=== PATIENT | male | born 1965 | race Caucasian/White ===

== ENCOUNTER 2017-04-06 11:30 | Inpatient (IN) ==
--- NOTE | 2017-04-06 12:45 | Emergency Department Note ---
Disposition Clinical Impression: Cirrhosis, Splenomegaly, Thrombocytopenia, Alcohol abuse, Cirrhosis of liver with ascites, Elevated INR, Anemia Disposition: Admitted As Inpatient Referrals: Barbara Gutierrez CNP [Primary Care Provider] - Forms: ED Satisfaction Letter, Work/School Release General Adult HPI - General Chief complaint: ED Abdominal Pain Stated complaint: Fluid retention/abdominal cirrhosis/ascites Time Seen by Provider: 04/06/17 12:25 Source: patient Limitations: no limitations - History of Present Illness HPI Narrative: 52-year-old male reports to the emergency department with turns regarding abdominal swelling. There is no history of trauma chest pain or shortness of breath or leg swelling or pain or coughing up blood. The patient was seen at [facility] recently and had a CT scan which demonstrated splenomegaly cirrhosis and ascites. The patient had laboratory testing suggestive of cirrhosis as well , his INR was elevated had low platelets. The patient denies any bleeding. No bloody stool. There is no history of headache neck stiffness convulsion confusion or rash. No syncope. No trouble walking talking hearing seeing or speaking. The patient is known to drink alcohol. He has not had cirrhosis or liver problems in the past. There is no history of confusion or any other complaint or concern. The patient was referred to gastrology Dr. Sharp, but is not been able to get in yet. They called the office this morning and spoke with staff evidently they recommended the patient come to the ED. Pain Scale: 9 - Related Data Home Medications Medication Instructions Recorded Confirmed Lisinopril [Zestril] 40 mg PO DAILY 08/15/15 04/04/17 HydrOXYzine 25 mg PO HS PRN 08/04/16 04/04/17 Levothyroxine [Synthroid] 25 mcg PO 0630 08/04/16 04/04/17 Metoprolol [Lopressor] 50 mg PO BID 08/04/16 04/04/17 Omeprazole 20 mg PO DAILY 08/04/16 04/04/17 amLODIPine [Norvasc] 10 mg PO DAILY 08/04/16 04/04/17 Previous Rx's Medication Instructions Recorded Ondansetron HCl [Zofran] 4 mg PO Q6HR PRN #10 tablet 04/04/17 Allergies Allergy/AdvReac Type Severity Reaction Status Date / Time No Known Allergies Allergy Verified 04/06/17 12:02 All systems ED: reviewed and negative except as stated. Past Medical History - Past Medical History Medical history: Reports: cirrhosis, GERD, hypertension, thyroid disease, other Psychiatric history: Reports: no psych history - Social History Smoking Status: Current every day smoker Smokeless Tobacco Status: No Alcohol use: Reports: occasionally, recent Drug use: Reports: none Physical Exam - General Limitations: no limitations General appearance: alert, in no apparent distress - Head Head exam: atraumatic, normocephalic, normal inspection - Eye Eye exam: Present: normal appearance, PERRL, EOMI, scleral icterus - ENT ENT exam: normal exam, normal oropharynx, mucous membranes moist, TM's normal bilaterally, normal external ear exam - Neck Neck exam: Present: normal inspection, full ROM, trachea midline. Absent: tenderness, meningismus - Chest Chest inspection: Present: symmetric chest wall rise. Absent: tenderness - Respiratory Respiratory exam: Present: normal lung sounds bilaterally. Absent: respiratory distress, wheezes, stridor, accessory muscle use, prolonged expiratory phase - Cardiovascular Cardiovascular exam: Present: regular rate, normal rhythm, normal heart sounds - Abdominal Exam Abdominal exam: Present: soft, Non-Tender, distention, normal bowel sounds, ascites. Absent: tenderness, guarding, rebound, rigidity, pulsatile mass - Extremities Exam Extremities exam: Present: normal inspection, full ROM, normal capillary refill. Absent: tenderness, pedal edema, joint swelling, calf tenderness - Expanded Lower Extremity Exam Neurovascular/Tendon exam: Present: normal capillary refill. Absent: motor deficit, sensory deficit, tendon deficit, extremity cold to touch, pallor - Back Exam Back exam: Present: normal inspection, full ROM. Absent: tenderness, CVA tenderness (R), CVA tenderness (L), vertebral tenderness - Neurological Exam Neurological exam: Present: alert, oriented X3, CN II-XII intact. Absent: motor sensory deficit - Psychiatric Psychiatric exam: Present: normal affect, normal mood - Skin Skin exam: Present: warm, dry, intact, normal color. Absent: rash, cyanosis, diaphoresis, erythema, pallor, mottled Course Vital Signs Temperature 98.6 F 04/06/17 12:02 Pulse Rate 73 04/06/17 12:02 Respiratory Rate 20 04/06/17 12:02 Blood Pressure 147/94 04/06/17 12:02 O2 Sat by Pulse Oximetry 97 04/06/17 12:02 Temperature 98.6 F 04/06/17 12:02 Pulse Rate 73 04/06/17 12:02 Respiratory Rate 20 04/06/17 12:02 Blood Pressure 147/94 04/06/17 12:02 O2 Sat by Pulse Oximetry 97 04/06/17 12:02 Oxygen Delivery Oxygen Delivery Room Air Medical Decision Making - MDM Narrative Medical decision making narrative: The patient's CT scan from [facility] shows cirrhosis splenomegaly and ascites. Laboratory testing today consistent with same. The patient does have a significantly elevated INR and thrombocytopenia as well as anemia. Based on his marked ascites, coagulopathy, and symptomatic ascites, I thought it would be appropriate to put the patient the hospital for a first-time evaluation regarding cirrhosis which is likely alcohol-related. I think a paracentesis would be beneficial for analysis and symptomatic relief, as well as a GI consult. I spoke with the hospitalist on-call who has accepted the patient to their care. I also consulted with Dr. Sharp, [employer] who will act as entry level sales consultant. The patient is agreeable and stable at this time. - Lab Data Lab results reviewed: Yes I reviewed the patient's lab results. Result diagrams: 04/06/17 12:52 04/06/17 12:52 Lab Results 04/06/17 04/06/17 04/06/17 Range/Units 12:52 12:52 12:52 WBC 4.3 (4.3-11.1) K/mcL RBC 3.41 L (4.19-5.50) M/mcL Hgb 12.1 L (12.9-16.9) g/dL Hct 32.8 L (37.5-50.1) % MCV 96.2 (83.0-100.0) fL MCH 35.5 H (28.0-33.3) pg MCHC 36.9 H (31.6-35.5) g/dL RDW 16.1 H (11.5-14.5) % Plt Count 58 L (140-400) K/mcL MPV 9.7 (9.4-12.4) fL Immature Gran % 0.0 (0-4) % Seg Neutrophils % 58.6 % Lymphocytes % 27.6 % Monocytes % 12.4 % Eosinophils % 0.7 % Basophils % 0.7 % Neutrophils # 2.5 (1.6-8.9) K/mcL Lymphocytes # 1.2 (0.6-4.6) K/mcL Monocytes # 0.5 (0.0-1.3) K/mcL Eosinophils # 0.0 (0.0-0.6) K/mcL Basophils # 0.0 (0.0-0.2) K/mcL Immature Plt Fraction 5.1 (1.1-6.1) % PT 19.4 H (9.4-12.1) Seconds INR 1.8 APTT 42.7 H (26.0-36.0) Seconds Sodium 127 L (136-145) mEq/L Potassium 4.1 (3.5-4.5) mEq/L Chloride 94 L (98-109) mEq/L Carbon Dioxide 23 (19-29) mEq/L BUN 3 L (8-26) mg/dL Creatinine 0.70 L (0.72-1.25) mg/dL Est GFR ( Amer) > 60 (> 60) Est GFR (Non-Af Amer) > 60 (> 60) BUN/Creatinine Ratio 4 L (6-26) Glucose 113 H (70-99) mg/dL Calculated Osmolality 261 L (280-300) Lactic Acid (0.5-2.2) mmol/L Calcium 8.7 (8.6-10.8) mg/dL Total Bilirubin 4.9 H (0.2-1.2) mg/dL Direct Bilirubin 3.1 H (0.0-0.5) mg/dL Indirect Bilirubin 1.8 H (0.0-1.2) mg/dL AST 160 H (5-34) Units/L ALT 43 (0-55) Units/L Alkaline Phosphatase 202 H (38-126) Units/L Ammonia (18-72) mcmol/L Serum Total Protein 7.7 (6.0-8.3) g/dL Albumin 2.8 L (3.5-5.0) g/dL Globulin 4.9 H (2.4-3.5) g/dL Albumin/Globulin Ratio 0.6 L (1.1-2.2) Lipase 17 (8-78) Units/L Acetaminophen < 1.0 L (10-30) mcg/mL Ethyl Alcohol 82 H (0-10) mg/dL 04/06/17 04/06/17 Range/Units 12:52 12:52 WBC (4.3-11.1) K/mcL RBC (4.19-5.50) M/mcL Hgb (12.9-16.9) g/dL Hct (37.5-50.1) % MCV (83.0-100.0) fL MCH (28.0-33.3) pg MCHC (31.6-35.5) g/dL RDW (11.5-14.5) % Plt Count (140-400) K/mcL MPV (9.4-12.4) fL Immature Gran % (0-4) % Seg Neutrophils % % Lymphocytes % % Monocytes % % Eosinophils % % Basophils % % Neutrophils # (1.6-8.9) K/mcL Lymphocytes # (0.6-4.6) K/mcL Monocytes # (0.0-1.3) K/mcL Eosinophils # (0.0-0.6) K/mcL Basophils # (0.0-0.2) K/mcL Immature Plt Fraction (1.1-6.1) % PT (9.4-12.1) Seconds INR APTT (26.0-36.0) Seconds Sodium (136-145) mEq/L Potassium (3.5-4.5) mEq/L Chloride (98-109) mEq/L Carbon Dioxide (19-29) mEq/L BUN (8-26) mg/dL Creatinine (0.72-1.25) mg/dL Est GFR ( Amer) (> 60) Est GFR (Non-Af Amer) (> 60) BUN/Creatinine Ratio (6-26) Glucose (70-99) mg/dL Calculated Osmolality (280-300) Lactic Acid 1.8 (0.5-2.2) mmol/L Calcium (8.6-10.8) mg/dL Total Bilirubin (0.2-1.2) mg/dL Direct Bilirubin (0.0-0.5) mg/dL Indirect Bilirubin (0.0-1.2) mg/dL AST (5-34) Units/L ALT (0-55) Units/L Alkaline Phosphatase (38-126) Units/L Ammonia 37 (18-72) mcmol/L Serum Total Protein (6.0-8.3) g/dL Albumin (3.5-5.0) g/dL Globulin (2.4-3.5) g/dL Albumin/Globulin Ratio (1.1-2.2) Lipase (8-78) Units/L Acetaminophen (10-30) mcg/mL Ethyl Alcohol (0-10) mg/dL - Radiology Data Radiology results reviewed: Yes I reviewed the patient's radiology results.
[2017-04-06 13:02] LABS: Mean Corpuscular Volume 96.2 fL (83.0-100.0); Mean Platelet Volume 9.7 fL (9.4-12.4); Monocytes # 0.5 K/mcL (0.0-1.3); Monocytes % 12.4 %; Red Cell Distribution Width 16.1 % (11.5-14.5)
[2017-04-06 13:04] LABS: Basophils % 0.7 %; Eosinophils % 0.7 %; Hematocrit 32.8 % (37.5-50.1); Hemoglobin 12.1 g/dL (12.9-16.9); Immature Platelets 5.1 % (1.1-6.1); Lymphocytes # 1.2 K/mcL (0.6-4.6); Lymphocytes % 27.6 %; Mean Corpuscular HGB Conc 36.9 g/dL (31.6-35.5); Mean Corpuscular Hemoglobin 35.5 pg (28.0-33.3); Neutrophils # 2.5 K/mcL (1.6-8.9); Red Blood Count 3.41 M/mcL (4.19-5.50); Segmented Neutrophils % 58.6 %
[2017-04-06 13:05] LABS: Platelet Count 58 K/mcL (140-400)
[2017-04-06 13:10] LABS: INR 1.8; Prothrombin Time 19.4 Seconds (9.4-12.1)
[2017-04-06 13:12] LABS: Activated Partial Thrombo Time 42.7 Seconds (26.0-36.0)
[2017-04-06 13:18] LABS: Alanine Aminotransferase 43 Units/L (0-55); Albumin 2.8 g/dL (3.5-5.0); Albumin/Globulin Ratio 0.6 (1.1-2.2); Alkaline Phosphatase 202 Units/L (38-126); Aspartate Amino Transferase 160 Units/L (5-34); BUN/Creatinine Ratio 4 (6-26); Bilirubin,Direct 3.1 mg/dL (0.0-0.5); Bilirubin,Indirect 1.8 mg/dL (0.0-1.2); Bilirubin,Total 4.9 mg/dL (0.2-1.2); Calcium 8.7 mg/dL (8.6-10.8); Carbon Dioxide 23 mEq/L (19-29); Chloride 94 mEq/L (98-109); Ethanol 82 mg/dL (0-10); Globulin 4.9 g/dL (2.4-3.5); Glucose 113 mg/dL (70-99); Lipase 17 Units/L (8-78); Osmolality,Calculated 261 (280-300); Potassium 4.1 mEq/L (3.5-4.5); Sodium 127 mEq/L (136-145); Total Protein 7.7 g/dL (6.0-8.3); eGFR For African Americans > 60 (> 60); eGFR For Non-African Americans > 60 (> 60)
[2017-04-06 13:19] LABS: Acetaminophen < 1.0 mcg/mL (10-30); Blood Urea Nitrogen 3 mg/dL (8-26)
[2017-04-06 14:13] LABS: C-Reactive Protein 3 mg/L (Less than 5)
[2017-04-06 15:22] LABS: Bilirubin,Urine Negative (Negative); Blood,Urine Negative (Negative); Color,Urine Yellow (Yellow); Glucose,Urine (UA) Normal (Normal); Ketones,Urine Negative (Negative); Leukocyte Esterase,Urine Negative (Negative); Nitrite,Urine Negative (Negative); PH,Urine 6.5 pH Units (5.0-8.0); Protein,Urine Negative (Neg-Trace); Specific Gravity,Urine 1.006 (1.010-1.025); Urobilinogen,Urine Normal (Normal)
[2017-04-06 15:25] LABS: Clarity,Urine Clear (Clear)
[2017-04-06] MEDS ORDERED: Naloxone 0.4 MG/ML INJ IVP PRN (17:07)
[2017-04-06] MEDS ORDERED: *HR* LORazepam 2 MG/ML VIAL IVP PRN ×2 (17:16)
--- NOTE | 2017-04-06 17:28 | Internal Med History&Physical ---
<Lilliana Vargas - Last Filed: 04/06/17 17:55> Date of Encounter: 04/06/17 Time of Encounter: 17:28 Assessment and Plan (1) Cirrhosis of liver with ascites Current visit: Yes Status: Acute 1 patient has had increase in abdominal girth over the past [address] [facility] with ascites and splenomegaly. Patient is a drinker and drinks approximately 12 pack daily since he was [address] Sharp has been consulted per ER 2 we will consult IR for paracentesis in the a.m.-order has been placed day team to follow-up 3 we will make patient nothing by mouth 4 monitor intake and output daily weight Qualifiers: Hepatic cirrhosis type: alcoholic cirrhosis Qualified Code(s): K70.31 - Alcoholic cirrhosis of liver with ascites (2) Alcohol abuse Current visit: Yes Status: Chronic [address] on CIWA 2 monitor for withdrawal-neuro checks 3 give banana bag tonight 4 continuous critic monitoring 5 seizure precautions (3) Tobacco use Current visit: Yes Status: Acute Encouraged patient saw smoking nicotine patch (4) Elevated INR Current visit: Yes Status: Acute 1. Related to cirrhosis Will recheck in the a.m. monitor for any bleeding (5) Thrombocytopenia Current visit: Yes Status: Acute Lele platelets are 58 related to cirrhosis of the liver we will continue to monitor 2 bleeding precautions (6) Hypertension Current visit: No Status: Chronic Continue with lisinopril and amlodipine and metoprolol 2 low sodium diet Qualifiers: Hypertension type: essential hypertension Qualified Code(s): I10 - Essential (primary) hypertension (7) Hypothyroid Current visit: No Status: Chronic Continue with Synthroid Qualifiers: Hypothyroidism type: unspecified Qualified Code(s): E03.9 - Hypothyroidism , unspecified (8) DVT prophylaxis Current visit: Yes Status: Acute SCDs platelets are 58 Internal Medicine - H&P: HPI Chief complaint: abd swelling Admitted From: Emergency Dept Plans for Post Hospital Care: Home History of present illness: Mr. Majano is a 52 year old male past HISTORY of hypertension hypothyroid GERD cirrhosis ETO H use tobacco use. According to the patient he has been experiencing abdominal swelling over the past 2 weeks he was seen at [facility] , CT was obtained which was indicative of cirrhosis splenomegaly and ascites. He does have a past history of alcohol use he drinks a 12 pack daily which she has done since he was 14 years old. He states he has not had any cirrhosis or liver problems in the past . He was to follow-up as outpatient with which he has an appointment next week. He has continued to experience swelling has become more uncomfortable at times having difficulty sleeping at night experiencing early satiety and some shortness of breath as well as lower extremity edema. He denies any active bleeding hematochezia hematemesis melena. He called the office this morning and spoke with the staff advised the patient to go to the ER for evaluation. According to ER records and laboratory work was obtained which did reveal INR of 1.8 platelets 58 leukocytosis lactate is 1.8 AST was 160 LT is 43 alkaline phosphatase was 202 ammonia was 37 lipase was 17. Vital signs were stable ER physician did speak with GI we will see patient upon consult. Patient has been admitted for further workup and evaluation. Presently the patient denies any pain or discomfort at this time. He admits that his last drink was this morning prior to arriving to the hospital. His abdomen is distended and firm there is no guarding or tenderness to palpation. His sclerae are icterus no bruising noted. His lung sounds are clear heart sounds are regular S1 and S2 with no rubs gallops murmurs noted. Does have slight pedal edema to lower extremity is bilaterally. He is hemodynamically stable at this time. Diabetes his with who agrees with plan. Past Med Surg Social Fam HX - Past Medical History Medical history: cirrhosis, GERD, hypertension, thyroid disease, other Psychiatric history: no psych history - Social History Smoking Status: Current every day smoker Smokeless Tobacco Status: No Alcohol use: occasionally, recent Drug use: none - Family History Father Living Status: Cause of : Semi-truck accident Mother Living Status: Cause of : Ovarian cancer Internal Medicine - H&P: Meds Lisinopril [Zestril] 40 mg PO DAILY 08/15/15 [History] HydrOXYzine 25 mg PO HS PRN 08/04/16 [History] Levothyroxine [Synthroid] 25 mcg PO 0630 08/04/16 [History] Metoprolol [Lopressor] 50 mg PO BID 08/04/16 [History] Omeprazole 20 mg PO DAILY 08/04/16 [History] amLODIPine [Norvasc] 10 mg PO DAILY 08/04/16 [History] Ondansetron HCl [Zofran] 4 mg PO Q6HR PRN #10 tablet 04/04/17 [Rx] Hydrochlorothiazide [Microzide] 12.5 mg PO QAM 04/06/17 [History] 3 Allergy/AdvReac Type Severity Reaction Status Date / Time No Known Allergies Allergy Verified 04/06/17 12:02 All Systems PM: A 10-system review of systems was performed and is negative for pertinent findings except as documented above in the HPI. - Constitutional Constitutional: weight gain, no chills, no fever(s), no night sweats - EENT Nose, mouth and throat: no dysphagia, no nasal discharge, no neck pain, no sore throat - Cardiovascular Cardiovascular ROS IM: no chest pain, no diaphoresis, no dyspnea, no lightheadedness, no palpitations, no syncope - Respiratory Respiratory: no cough, no dyspnea, no wheezing, no excessive phlegm production - Gastrointestinal Gastrointestinal: as per HPI, bloating, early satiety - Musculoskeletal Musculoskeletal ROS IM: no numbness, no tingling - Integumentary Integumentary IM: no rash, no unusual bruising - Neurological Neurological ROS: no confusion, no convulsions, no focal weakness, no numbness, no tingling, no tremor(s) - Hematologic/Lymphatic Hematologic/Lymphatic: no easy bruising - Constitutional Vitals: Temp Pulse Resp BP Pulse Ox 97.8 F 69 18 161/98 99 04/06/17 14:55 04/06/17 14:55 04/06/17 14:55 04/06/17 14:55 04/06/17 15:13 General appearance: Present: A&O X 3, answers questions appropriately - Head Head exam: Present: atraumatic Additional comments: Face is asymmetrical which patient states has been present since - Neck Neck exam general surgery: Present: supple, trachea midline. Absent: lymphadenopathy - Respiratory Respiratory exam: Present: CTAB. Absent: accessory muscle use, rales, rhonchi, wheezes - Cardiovascular Cardiovascular exam: Present: RRR, +S1, +S2. Absent: diastolic murmur, gallop, rubs, systolic murmur - GI/Abdominal GI/Abdominal exam: Present: distended, firm, normal bowel sounds, soft, no peritoneal signs. Absent: tenderness - Extremities Exam Extremities exam: Present: warm, radial pulses palpable and symmetrical. Absent : calf tenderness, cyanotic, pedal edema - Neurological Exam Neurological exam: Present: CN II-XII intact, oriented X3, no focal deficits. Absent: pronater drift, facial droop, speech deficit - Skin Skin exam: Present: dry, intact Internal Med - H&P Results - Labs CBC & Chem 7: 04/06/17 12:52 04/06/17 12:52 Labs: Urine 04/06/17 Range/Units 15:00 Urine Color Yellow (Yellow) Urine Clarity Clear (Clear) Urine pH 6.5 (5.0-8.0) pH Units Ur Specific [place] 1.006 L (1.010-1.025) Urine Protein Negative (Neg-Trace) mg/dL Urine Glucose (UA) Normal (Normal) mg/dL <Reuben Avila - Last Filed: 04/06/17 19:57> Date of Encounter: 04/06/17 Internal Medicine - H&P: HPI History of present illness: Mr. Majano is a 52 year old male All Systems PM: A 10-system review of systems was performed and is negative for pertinent findings except as documented above in the HPI. - Constitutional Vitals: Temp Pulse Resp BP Pulse Ox 97.4 F L 76 19 145/93 98 04/06/17 18:38 04/06/17 18:38 04/06/17 18:38 04/06/17 18:38 04/06/17 18:38 Internal Med - H&P Results - Labs CBC & Chem 7: 04/06/17 12:52 04/06/17 12:52 Labs: Urine 04/06/17 Range/Units 15:00 Urine Color Yellow (Yellow) Urine Clarity Clear (Clear) Urine pH 6.5 (5.0-8.0) pH Units Ur Specific [place] 1.006 L (1.010-1.025) Urine Protein Negative (Neg-Trace) mg/dL Urine Glucose (UA) Normal (Normal) mg/dL - Attending Attestation I independently obtained history and examined this patient and my medical decision-making was reviewed with the nurse practitioner. I agree with the documented findings, disposition and treatment plan as described. My findings are summarized below: He is awake alert oriented 3. Heart is regular. Abdomen is distended with dullness to percussion flanks and positive wave sign. Plan: Paracentesis by radiology tomorrow. GI consult. Hepatitis panel to rule out viral hepatitis possible cause for his cirrhosis. I advised complete alcohol cessation.
[2017-04-06] MEDS: Nicotine 21 MG PATCH.TD24 TD SCH (17:40)
[2017-04-06] MEDS: *HR* LORazepam 2 MG/ML VIAL IVP PRN ×2 (17:41→22:17)
[2017-04-06] MEDS: Thiamine (B-1) 100 MG, Folic Acid 1 MG, MVI, adult with vitamin K 10 ML in 0.9 % Sodi... IVPB SCH (18:45)
[2017-04-07] MEDS: Thiamine (B-1) 100 MG, Folic Acid 1 MG, MVI, adult with vitamin K 10 ML in 0.9 % Sodi... IVPB SCH (00:34)
[2017-04-07 06:02] LABS: Basophils % 0.9 %; Hemoglobin 10.7 g/dL (12.9-16.9)
[2017-04-07 06:04] LABS: Eosinophils # 0.1 K/mcL (0.0-0.6); Eosinophils % 1.8 %; Immature Platelets 4.2 % (1.1-6.1); Lymphocytes # 1.4 K/mcL (0.6-4.6); Lymphocytes % 40.2 %; Mean Corpuscular HGB Conc 36.9 g/dL (31.6-35.5); Mean Corpuscular Hemoglobin 35.4 pg (28.0-33.3); Mean Platelet Volume 9.9 fL (9.4-12.4); Monocytes # 0.6 K/mcL (0.0-1.3); Monocytes % 16.3 %; Neutrophils # 1.4 K/mcL (1.6-8.9); Red Blood Count 3.02 M/mcL (4.19-5.50); Red Cell Distribution Width 16.2 % (11.5-14.5); Segmented Neutrophils % 40.8 %
[2017-04-07 06:07] LABS: INR 1.8; Prothrombin Time 19.3 Seconds (9.4-12.1)
[2017-04-07 06:08] LABS: Platelet Count 54 K/mcL (140-400)
[2017-04-07 06:10] LABS: Activated Partial Thrombo Time 43.9 Seconds (26.0-36.0)
[2017-04-07 06:16] LABS: BUN/Creatinine Ratio 6 (6-26); Calcium 8.1 mg/dL (8.6-10.8); Carbon Dioxide 25 mEq/L (19-29); Chloride 100 mEq/L (98-109); Glucose 104 mg/dL (70-99); Magnesium 1.1 mg/dL (1.6-2.6); Osmolality,Calculated 265 (280-300); Potassium 3.9 mEq/L (3.5-4.5); eGFR For African Americans > 60 (> 60); eGFR For Non-African Americans > 60 (> 60)
[2017-04-07 06:17] LABS: Blood Urea Nitrogen 4 mg/dL (8-26); Sodium 129 mEq/L (136-145)
[2017-04-07 06:24] LABS: Platelet Estimate Marked Decrease (Normal); Reactive Lymphocytes Present (Not Present)
[2017-04-07] MEDS: Levothyroxine 25 MCG TABLET PO SCH (06:24)
[2017-04-07 06:38] LABS: Hepatitis A Antibody IgM Nonreactive (Nonreactive); Hepatitis B Core IgM Nonreactive (Nonreactive); Hepatitis B Surface Antigen Nonreactive (Nonreactive); Hepatitis C Virus Antibody Nonreactive (Nonreactive)
[2017-04-07] MEDS: *HR* LORazepam 2 MG/ML VIAL IVP PRN (06:51)
[2017-04-07] MEDS ORDERED: Pantoprazole 40 MG VIAL IVP SCH (09:00)
[2017-04-07] MEDS ORDERED: hydroCHLOROthiazide 25 MG TABLET PO SCH (09:00)
--- NOTE | 2017-04-07 09:43 | IR Procedure Note ---
Date of procedure: 04/07/17 Consent Obtained: Verbal consent, Written consent Timeout: Correct patient and procedure verified, Correct site verified, Time out performed, Skin prep completed Local anesthetic: Lidocaine 1% Indications: ascites Procedure Performed: paracentesis Site/Technique: RLQ Results/Findings: serous fluid Estimated blood loss (cc): 1 Complications: None; Tolerated procedure well Post Procedure Treatment Plan: fluid studies pending
[2017-04-07] MEDS: Nicotine 21 MG PATCH.TD24 TD SCH (09:58)
[2017-04-07] MEDS: Lisinopril 20 MG TABLET PO SCH (09:58)
[2017-04-07] MEDS: Magnesium Sulfate 2 GM in D5% in Water 100 ML IVPB SCH ×2 (09:58→12:33)
[2017-04-07] MEDS: amLODIPine 5 MG TABLET PO SCH (09:58)
--- NOTE | 2017-04-07 10:44 | Gastroenterology Consult Note ---
<Vilma Swain - Last Filed: 04/07/17 11:06> Date of Encounter: 04/07/17 Time of Encounter: 09:30 - Assessment and plan (1) Alcoholic cirrhosis of liver with ascites Current Visit: Yes Status: Acute Assessment and plan: Pt presents with increasing abdominal girth. He has longstanding history of alcohol abuse. He is s/p paracentesis and is symptomatically improved. He has elevated LFTs will order further laboratory testing. He needs EGD to evaluate for varices. He needs liver ultrasound as last one was > 6 months ago. He may need diuresed with lasix and aldactone. Will monitor albumin and INR, may need vitamin K if coagulopathy occurs. (2) Colon polyps Current Visit: Yes Status: Acute Assessment and plan: Last colonoscopy 09/19, had multiple polyps needs repeated. Qualifiers: Qualified Code(s): D12.6 - Benign neoplasm of colon, unspecified - Time Spent With Patient Total time spent is greater than 50% in coordination of care (as documented) at patient's floor/unit and/or counseling patient: GI History of Present Illness - Data of Consult Patient: known to practice within the last 3 years Consult date: 04/07/17 Requesting Physician: Anaid Silva MD - Consult Narrative Reason for consult: Cirrhosis History of present illness: Mr. Majano is a 52 year old male who presented with increasing abdominal girth. He has a pmhx of HTN, hypothyroidism, GERD and ongoing alcoholism. The patient reports drinking 12 pack of beer a day and last drink was on the day of admission. He presented is abdominal bloating, CT abdomen showed cirrhosis and splenomegaly. He has occasional right sideds abdominal pain and complains of bloating. He denies bloody emesis or stool. He denies dysphagia. He has had some nausea but denies vomiting. He had BM x 2 yesterday and reports occasional diarrhea. He denies constipation. He was having some shortness of breath when lying flat. Hgb was 10.7 INR 1.8, Albumin 2.8, ast 160 ALT 43 platelets 54, hepatitis screen negative. He denies any IVDA. He had colonoscopy 09/[address] Jaquez which showed multiple polyps, biopsy showed tubular adenomas and hyperplastic polyps without dysplasia. He was advised to return for repeat colonoscopy in 6 months, he had oupt appt with Dr Sharp 04/13/17. Liver ultrasound 06/20 showed: 1. Moderate hepatic steatosis. Given coarsened liver echotexture, superimposed fibrotic change may represent, although are no obvious findings of cirrhosis. 2. Mild gallbladder wall thickening adjacent to the gallbladder fossa, likely related to adjacent liver disease. Some biliary sludge is present, but no findings of cholelithiasis or cholecystitis are identified. Meld NA score: 25 Colonoscopy: 09/19 multiple polyps EGD: denies NSAIDS: ibuprofen prn a few days before admission ASA: denies Anticougulants: denies Past Med Surg Social Fam HX - Past Medical History Medical history: cirrhosis, GERD, hypertension, thyroid disease, other Psychiatric history: no psych history - Social History Smoking Status: Current every day smoker Smokeless Tobacco Status: No Alcohol use: occasionally, recent Drug use: none - Family History Father Living Status: Cause of : Semi-truck accident Mother Living Status: Cause of : Ovarian cancer Review of Systems: GI: as per HOH GENERAL: denies fever, or chills EYES: denies yellow discoloration ENT: denies pain with swallowing or difficulty swallowing CARDIO: denies chest pain, palpitations RESP: No Shortness of breath with exertion : denies change in color of urine NEURO: denies any weakness HEME: Denies any bruising MS: denies joint pain, joint swelling or back pain. DERM: denies rash or itching PSYCH: Denies history of anxiety or depression - Constitutional Vitals: Temp Pulse Resp BP Pulse Ox 98.2 F 83 14 131/90 95 04/07/17 07:28 04/07/17 07:28 04/07/17 07:28 04/07/17 07:28 04/07/17 07:28 Exam: CONSTITUTIONAL:~alert, no acute distress.~HEAD:~normocephalic, right sided facial paralysis noted (pt states has been present since ).~EYES:~no jaundice.~NECK:~no obvious swelling.~HEART:~regular rate and rhythm, no murmurs. ~LUNGS:~bilateral good air entry.~ABDOMEN:~ softly distended, non tender, no masses pulpable, no organomegaly, right lower quadrant paracentesis site without bruising or drainage..~RECTAL EXAM:~Deferred.~EXTREMITIES:~no clubbing, or cyanosis, trace BLE edema.~SKIN:~no stigmata of chronic liver disease.~ NEUROLOGIC:~no obvious focal defect.~~~~ Results - Labs CBC & Chem 7: 04/07/17 05:55 04/07/17 05:55 Labs: Last Result Calcium 8.1 mg/dL (8.6-10.8) L 04/07/17 05:55 C-Reactive Protein 3 mg/L (Less than 5) 04/06/17 12:52 Entire Visit Hgb 10.7 g/dL (12.9-16.9) L 04/07/17 05:55 Hct 29.0 % (37.5-50.1) L 04/07/17 05:55 PT 19.3 Seconds (9.4-12.1) H 04/07/17 05:55 Total Bilirubin 4.9 mg/dL (0.2-1.2) H 04/06/17 12:52 AST 160 Units/L (5-34) H 04/06/17 12:52 ALT 43 Units/L (0-55) 04/06/17 12:52 Ammonia 37 mcmol/L (18-72) 04/06/17 12:52 Lipase 17 Units/L (8-78) 04/06/17 12:52 Acetaminophen < 1.0 mcg/mL (10-30) L 04/06/17 12:52 - ABG ABG results: PT/INR, D-dimer PT 19.3 Seconds (9.4-12.1) H 04/07/17 05:55 Consult Discharge Plan - Plan Referrals: Barbara Gutierrez, TOOLRO[employer] CLERK [Primary Care Provider] - (Please call office at discharge) <Janina Sharp - Last Filed: 04/07/17 17:52> Date of Encounter: 04/07/17 Time of Encounter: 18:00 - Time Spent With Patient Total time spent is greater than 50% in coordination of care (as documented) at patient's floor/unit and/or counseling patient: GI History of Present Illness - Data of Consult Requesting Physician: Anaid Silva MD - Consult Narrative History of present illness: Mr. Majano is a 52 year old male - Constitutional Vitals: Temp Pulse Resp BP Pulse Ox 98.2 F 77 13 118/79 95 04/07/17 16:01 04/07/17 16:01 04/07/17 16:01 04/07/17 16:01 04/07/17 16:01 Results - Labs CBC & Chem 7: 04/07/17 05:55 04/07/17 05:55 Labs: Last Result Calcium 8.1 mg/dL (8.6-10.8) L 04/07/17 05:55 Iron 123 mcg/dL (65-175) 04/07/17 09:43 % Saturation 91 % (20-55) H 04/07/17 09:43 Transferrin 97 mg/dL (174-364) L 04/07/17 09:43 Ferritin 773 ng/ml (22-275) H 04/07/17 09:43 C-Reactive Protein 3 mg/L (Less than 5) 04/06/17 12:52 Entire Visit Hgb 10.7 g/dL (12.9-16.9) L 04/07/17 05:55 Hct 29.0 % (37.5-50.1) L 04/07/17 05:55 PT 19.3 Seconds (9.4-12.1) H 04/07/17 05:55 Ferritin 773 ng/ml (22-275) H 04/07/17 09:43 Total Bilirubin 4.9 mg/dL (0.2-1.2) H 04/06/17 12:52 AST 160 Units/L (5-34) H 04/06/17 12:52 ALT 43 Units/L (0-55) 04/06/17 12:52 Ammonia 37 mcmol/L (18-72) 04/06/17 12:52 Lipase 17 Units/L (8-78) 04/06/17 12:52 Acetaminophen < 1.0 mcg/mL (10-30) L 04/06/17 12:52 - ABG ABG results: PT/INR, D-dimer PT 19.3 Seconds (9.4-12.1) H 04/07/17 05:55 - Attending Attestation I examined this patient and my medical decision-making was reviewed with the Resident Physician. I agree with the documented findings, disposition and treatment plan as described except to the extent set forth below. Patient with alcoholic cirrhosis with a high meld score. Does has ascites significant. We will start her him on low-dose diuretics. Lasix 40 Aldactone 100. EGD am.
[2017-04-07 10:58] LABS: Thyroid Stimulating Hormone 5.126 mcIU/mL (0.350-4.840)
--- NOTE | 2017-04-07 16:01 | Internal Med Progress Note ---
Date of Encounter: 04/07/17 Time of Encounter: 15:59 - Assessment and plan (1) Cirrhosis of liver with ascites Current Visit: Yes Status: Acute Assessment and plan: s/p paracentesis with removal of 5.5L ascites fluid will f/u fluid analysis GI consultation appreciated NPO after midnight for EGD in am started lasix and spironolactone SCD for DVT ppx given thrombocytopenia Qualifiers: Hepatic cirrhosis type: alcoholic cirrhosis Qualified Code(s): K70.31 - Alcoholic cirrhosis of liver with ascites (2) Hyponatremia Current Visit: Yes Status: Acute Assessment and plan: likely secondary to excessive beer intake holding HCTZ at this time closely monitor Na levels mental status AAOx 3 (3) Thrombocytopenia Current Visit: Yes Status: Chronic Assessment and plan: secondary to liver cirrhosis will closely monitor (4) Alcohol abuse Current Visit: Yes Status: Chronic Assessment and plan: continue folate and thiamine supplementation closely monitor for alcohol withdrawal CIWA protocol ativan prn librium jemal alcohol cessation counseling provided social service manager evaluation requested (5) Tobacco use Current Visit: Yes Status: Acute Assessment and plan: smoking cessation provided nicotine supplementation provided (6) Hypertension Current Visit: No Status: Chronic Assessment and plan: BP within acceptable range continue home meds Qualifiers: Hypertension type: essential hypertension Qualified Code(s): I10 - Essential (primary) hypertension (7) DVT prophylaxis Current Visit: Yes Status: Acute Assessment and plan: SCD (8) Hypomagnesemia Current Visit: Yes Status: Acute Assessment and plan: Mg supplemented continue to monitor electrolytes and replace as needed - Subjective Interval history: Patient seen and examined with family present at bedside. Pt is s/p paracentesis with removal of 5.5L ascites fluid. Reports of feeling significantly better since paracentesis. Reports of drinking 12pack of beer daily and is newly diagnosed with cirrhosis of the liver. He states he will consider quitting. Also reports of smoking 1ppd. - Constitutional Vitals: Temp Pulse Resp BP Pulse Ox 98.3 F 67 13 123/83 96 04/07/17 11:44 04/07/17 11:44 04/07/17 11:44 04/07/17 11:44 04/07/17 11:44 General appearance: Present: A&O X 3, no acute distress, obese, answers questions appropriately - Head Head exam: Present: atraumatic, normocephalic - Eye Eye exam: Present: conjuntiva pink, sclera anicteric - Respiratory Respiratory exam: Present: CTAB. Absent: respiratory distress, wheezes - Cardiovascular Cardiovascular exam: Present: RRR, +S1, +S2. Absent: diastolic murmur, gallop, rubs, systolic murmur - GI/Abdominal GI/Abdominal exam: Present: distended (ascites), normal bowel sounds, soft. Absent: tenderness - Extremities Exam Extremities exam: Present: pedal edema, warm, radial pulses palpable and symmetrical. Absent: calf tenderness - Neurological Exam Neurological exam: Present: alert, oriented X3 Internal Medicine: Result - Labs CBC & Chem 7: 04/07/17 05:55 04/07/17 05:55 Labs: Short CBC 04/07/17 Range/Units 05:55 WBC 3.4 L (4.3-11.1) K/mcL Hgb 10.7 L (12.9-16.9) g/dL Hct 29.0 L (37.5-50.1) % Plt Count 54 L (140-400) K/mcL Neutrophils # 1.4 L (1.6-8.9) K/mcL BMP 04/07/17 05:55 Sodium 129 L Potassium 3.9 Chloride 100 Carbon Dioxide 25 BUN 4 L Creatinine 0.65 L Glucose 104 H Calcium 8.1 L - ABG Interpretation ABG results: PT/INR, D-dimer PT 19.3 Seconds (9.4-12.1) H 04/07/17 05:55 Consult Discharge Plan - Plan Referrals: Barbara Gutierrez CNP [Primary Care Provider] - (Please call office at discharge)
[2017-04-07] MEDS: Furosemide 20 MG TABLET PO SCH (16:54)
[2017-04-08] MEDS: Levothyroxine 25 MCG TABLET PO SCH (05:46)
[2017-04-08 05:52] LABS: Eosinophils % 1.5 %
[2017-04-08 05:54] LABS: Basophils % 0.5 %; Eosinophils # 0.1 K/mcL (0.0-0.6); Hematocrit 29.7 % (37.5-50.1); Hemoglobin 10.8 g/dL (12.9-16.9); Immature Granulocytes % 0.3 % (0-4); Immature Platelets 5.7 % (1.1-6.1); Lymphocytes # 1.4 K/mcL (0.6-4.6); Lymphocytes % 35.6 %; Mean Corpuscular HGB Conc 36.4 g/dL (31.6-35.5); Mean Corpuscular Hemoglobin 35.3 pg (28.0-33.3); Mean Corpuscular Volume 97.1 fL (83.0-100.0); Mean Platelet Volume 10.6 fL (9.4-12.4); Monocytes # 0.6 K/mcL (0.0-1.3); Neutrophils # 1.8 K/mcL (1.6-8.9); Platelet Count 55 K/mcL (140-400); Red Blood Count 3.06 M/mcL (4.19-5.50); Red Cell Distribution Width 16.7 % (11.5-14.5); Segmented Neutrophils % 46.1 %
[2017-04-08 06:04] LABS: BUN/Creatinine Ratio 6 (6-26); Calcium 8.1 mg/dL (8.6-10.8); Carbon Dioxide 25 mEq/L (19-29); Chloride 101 mEq/L (98-109); Glucose 120 mg/dL (70-99); Magnesium 1.5 mg/dL (1.6-2.6); Osmolality,Calculated 272 (280-300); Phosphorous 2.7 mg/dL (2.3-4.7); Potassium 4.2 mEq/L (3.5-4.5); Total Protein 6.7 g/dL (6.0-8.3); eGFR For African Americans > 60 (> 60); eGFR For Non-African Americans > 60 (> 60)
[2017-04-08 06:05] LABS: Blood Urea Nitrogen 4 mg/dL (8-26); Lactate Dehydrogenase 222 Units/L (159-327); Sodium 132 mEq/L (136-145)
[2017-04-08] MEDS: Lisinopril 20 MG TABLET PO SCH (07:46)
[2017-04-08] MEDS: Nicotine 21 MG PATCH.TD24 TD SCH (07:46)
[2017-04-08] MEDS: Spironolactone 25 MG TABLET PO SCH (07:47)
[2017-04-08] MEDS: Furosemide 20 MG TABLET PO SCH (07:47)
[2017-04-08] MEDS: amLODIPine 5 MG TABLET PO SCH (07:49)
[2017-04-08] MEDS ORDERED: Magnesium Sulfate 2 GM in D5% in Water 100 ML IVPB ONE (08:04)
[2017-04-08] MEDS ORDERED: *HR* Propofol 200 MG/20 ML VIAL IVP ONE (10:13)
[2017-04-08 10:48] LABS: RBC,Peritoneal Fluid < 0.002 M/mcL
[2017-04-08 10:53] LABS: Amylase,Peritoneal Fluid 5 Units/L (No Ref Range); Glucose,Peritoneal Fluid 119 mg/dL (No Ref Range); LDH,Peritoneal Fluid 41 Units/L (No Ref Range)
[2017-04-08 10:59] LABS: Total Protein,Peritoneal Fluid 1.2 g/dL (No Ref Range)
[2017-04-08 12:11] LABS: Appearance of Peritoneal Fl CLEAR (Clear)
--- NOTE | 2017-04-08 12:35 | Internal Med Progress Note ---
Date of Encounter: 04/08/17 Time of Encounter: 12:33 - Assessment and plan (1) Cirrhosis of liver with ascites Current Visit: Yes Status: Acute Assessment and plan: s/p paracentesis with removal of 5.5L ascites fluid GI consultation appreciated Scheduled for EGD today (04/08/17) to evaluate for esophageal varices continue lasix and spironolactone SCD for DVT ppx given thrombocytopenia Qualifiers: Hepatic cirrhosis type: alcoholic cirrhosis Qualified Code(s): K70.31 - Alcoholic cirrhosis of liver with ascites (2) Hyponatremia Current Visit: Yes Status: Acute Assessment and plan: likely secondary to excessive beer intake hyponatremia improving holding HCTZ at this time closely monitor Na levels mental status AAOx 3 (3) Thrombocytopenia Current Visit: Yes Status: Chronic Assessment and plan: secondary to liver cirrhosis will closely monitor (4) Alcohol abuse Current Visit: Yes Status: Chronic Assessment and plan: continue folate and thiamine supplementation closely monitor for alcohol withdrawal CIWA protocol ativan prn librium taper, (librium 25mg PO q8h) alcohol cessation counseling provided social welfare research worker evaluation noted, patient refusing consultation at this time (5) Tobacco use Current Visit: Yes Status: Acute Assessment and plan: smoking cessation provided nicotine supplementation provided (6) Hypertension Current Visit: No Status: Chronic Assessment and plan: BP within acceptable range continue home meds Qualifiers: Hypertension type: essential hypertension Qualified Code(s): I10 - Essential (primary) hypertension (7) DVT prophylaxis Current Visit: Yes Status: Acute Assessment and plan: SCD (8) Hypomagnesemia Current Visit: Yes Status: Acute Assessment and plan: Mg supplemented continue to monitor electrolytes and replace as needed (9) Thyroid disease Current Visit: Yes Status: Acute Assessment and plan: Thyroid function tests concerning for hypothyroidism, however given the mildly elevated TSH and pt being clinically asymptomatic, will monitor off any thyroid therapy at this time. Pt to repeat thyroid profile as outpatient If pt becomes clinically symptomatic, will initiate therapy - Subjective Interval history: Patient seen and examined with family present at bedside. Pt is s/p paracentesis with removal of 5.5L ascites fluid (04/07/17). Reports of feeling significantly better since paracentesis. Reports of drinking 12pack of beer daily and is newly diagnosed with cirrhosis of the liver. He states he will consider quitting. Also reports of smoking 1ppd. was placed on librium 25mg PO q6h and responding appropriately to therapy, will initiate taper and change to librium 25mg PO q8h. Scheduled for EGD today to rule out esophageal varices - Constitutional Vitals: Temp Pulse Resp BP Pulse Ox 97.6 F 73 20 116/76 97 04/08/17 11:04 04/08/17 11:04 04/08/17 11:04 04/08/17 11:04 04/08/17 11:04 General appearance: Present: A&O X 3, no acute distress, obese, answers questions appropriately - Head Head exam: Present: atraumatic, normocephalic - Eye Eye exam: Present: conjuntiva pink, sclera anicteric - Respiratory Respiratory exam: Present: CTAB. Absent: respiratory distress, wheezes - Cardiovascular Cardiovascular exam: Present: RRR, +S1, +S2. Absent: diastolic murmur, gallop, rubs, systolic murmur - GI/Abdominal GI/Abdominal exam: Present: distended (ascites), normal bowel sounds, soft, no peritoneal signs. Absent: tenderness - Extremities Exam Extremities exam: Present: full ROM, warm, radial pulses palpable and symmetrical. Absent: calf tenderness - Neurological Exam Neurological exam: Present: alert, oriented X3 - Psychiatric Psychiatric exam: Present: normal affect, normal mood Internal Medicine: Result - Labs CBC & Chem 7: 04/08/17 05:22 04/08/17 05:22 Labs: Short CBC 04/08/17 Range/Units 05:22 WBC 4.0 L (4.3-11.1) K/mcL Hgb 10.8 L (12.9-16.9) g/dL Hct 29.7 L (37.5-50.1) % Plt Count 55 L (140-400) K/mcL Neutrophils # 1.8 (1.6-8.9) K/mcL BMP 04/08/17 05:22 Sodium 132 L Potassium 4.2 Chloride 101 Carbon Dioxide 25 BUN 4 L Creatinine 0.68 L Glucose 120 H Calcium 8.1 L - ABG Interpretation ABG results: PT/INR, D-dimer PT 19.3 Seconds (9.4-12.1) H 04/07/17 05:55 Consult Discharge Plan - Plan Referrals: Barbara Gutierrez, MOI [Primary Care Provider] - (Please call office at discharge)
--- NOTE | 2017-04-08 13:33 | Anesthesia Evaluation PreOp ---
Date of Encounter: 04/08/17 Time of Encounter: 13:30 - Past History Planned Operation: EGD Cardiac History: HTN Pulmonary History: Smoker Other Medical History: Hepatic (Cirrhosis with ascites), Thyroid (Hypothyroid), Other (Thrombocytopenia, splenomegaly) Anesthesia History: No Prior Anesthetic Complications, Past Anesthesia (teeth pulled) Alcohol Use: heavy Drug use: none Medications and Allergies Lisinopril [Zestril] 40 mg PO DAILY 08/15/15 [History] HydrOXYzine 25 mg PO HS PRN 08/04/16 [History] Levothyroxine [Synthroid] 25 mcg PO 0630 08/04/16 [History] Metoprolol [Lopressor] 50 mg PO BID 08/04/16 [History] Omeprazole 20 mg PO DAILY 08/04/16 [History] amLODIPine [Norvasc] 10 mg PO DAILY 08/04/16 [History] Ondansetron HCl [Zofran] 4 mg PO Q6HR PRN #10 tablet 04/04/17 [Rx] Hydrochlorothiazide [Microzide] 12.5 mg PO QAM 04/06/17 [History] 3 Allergy/AdvReac Type Severity Reaction Status Date / Time No Known Allergies Allergy Verified 04/06/17 12:02 - Meds/Allergy Pre-op Review Medications Reviewed: Yes Allergies Reviewed: Yes Beta Blockers on Current Med List: Yes If Beta Blockers taken, Date/Time (Last Dose taken): 07:46 04/08/2017 Anesthesia Results - Labs 04/08/17 05:22 04/08/17 05:22 Laboratory Tests 04/07/17 04/08/17 04/08/17 05:55 05:22 05:22 WBC 4.0 L Hgb 10.8 L Hct 29.7 L Plt Count 55 L INR 1.8 Sodium 132 L Potassium 4.2 Chloride 101 Carbon Dioxide 25 BUN 4 L Creatinine 0.68 L Anesthesia Exam O2 Sat Weight 99.065 kg O2 Sat by Pulse Oximetry 97 O2 Sat by Pulse Oximetry 96 O2 Sat by Pulse Oximetry 97 O2 Sat by Pulse Oximetry 97 O2 Sat by Pulse Oximetry 95 O2 Sat by Pulse Oximetry 95 Vital Signs Temp Pulse Resp BP Pulse Ox 98.6 F 73 20 147/94 97 04/06/17 12:02 04/06/17 12:02 04/06/17 12:02 04/06/17 12:02 04/06/17 12:02 Vital Signs/O2 Sat, Most Current Temp Pulse Resp BP Pulse Ox 97.6 F 73 20 116/76 97 04/08/17 11:04 04/08/17 11:04 04/08/17 11:04 04/08/17 11:04 04/08/17 11:04 Height: 5'9'' Weight: 218# NPO (# of Hours): > 8 hrs Pain Scale: 0 Pain Scale Used: Numeric (1 - 10) - HEENT Pupil (Motor): Pupils equal, EOMI Mallampati: II Teeth: Edentulous Denture Type: Upper: Complete, Lower: Complete Oral Opening: Greater than 3 - DIGITAL COMMUNITY MANAGER LOC: Oriented DIGITAL COMMUNITY MANAGER Motor: Normal RUE, Normal LUE, Normal RLE, Normal LLE, Normal Face DIGITAL COMMUNITY MANAGER Sensory: Normal: RUE, LUE, RLE, LLE, Face - Cardiac Rhythm: Regular Murmur: None JVD: No Carotid Bruit: No - Pulmonary Breath Sounds: bilateral Clear Respiratory Effort: Symmetrical Anesthesia Assess/Plan ASA Score: 4 Modified [place] Scale for Level of Consciousness: Cooperative, oriented, and tranquil Anesthetic Plan: MAC Autologous Blood: Yes Monitoring Plan: Standard Monitors Recovery Plan: Other
[2017-04-08 14:16] LABS: Ceruloplasmin 21 mg/dL (17-54)
[2017-04-08] MEDS: 0.9 % Sodium Chloride 1,000 ML IVC SCH (15:28)
[2017-04-08] MEDS: *HR* Phytonadione 5 MG TABLET PO SCH (16:46)
[2017-04-08] MEDS: Thiamine (B-1) 100 MG, Folic Acid 1 MG, MVI, adult with vitamin K 10 ML in 0.9 % Sodi... IVPB SCH (16:47)
[2017-04-09] MEDS: Levothyroxine 25 MCG TABLET PO SCH (05:26)
[2017-04-09 05:40] LABS: Hemoglobin 11.6 g/dL (12.9-16.9)
[2017-04-09 05:42] LABS: Basophils # 0.1 K/mcL (0.0-0.2); Basophils % 1.2 %; Eosinophils # 0.1 K/mcL (0.0-0.6); Eosinophils % 1.7 %; Hematocrit 32.4 % (37.5-50.1); Immature Granulocytes % 0.2 % (0-4); Immature Platelets 3.9 % (1.1-6.1); Lymphocytes # 1.5 K/mcL (0.6-4.6); Lymphocytes % 36.7 %; Mean Corpuscular HGB Conc 35.8 g/dL (31.6-35.5); Mean Corpuscular Hemoglobin 35.3 pg (28.0-33.3); Mean Corpuscular Volume 98.5 fL (83.0-100.0); Mean Platelet Volume 10.3 fL (9.4-12.4); Monocytes # 0.5 K/mcL (0.0-1.3); Neutrophils # 1.9 K/mcL (1.6-8.9); Red Blood Count 3.29 M/mcL (4.19-5.50); Red Cell Distribution Width 17.4 % (11.5-14.5); Segmented Neutrophils % 47.2 %
[2017-04-09 05:47] LABS: Platelet Count 64 K/mcL (140-400)
[2017-04-09 05:51] LABS: BUN/Creatinine Ratio 7 (6-26); Calcium 8.1 mg/dL (8.6-10.8); Carbon Dioxide 24 mEq/L (19-29); Chloride 105 mEq/L (98-109); Glucose 108 mg/dL (70-99); Magnesium 1.3 mg/dL (1.6-2.6); Osmolality,Calculated 276 (280-300); Potassium 3.8 mEq/L (3.5-4.5); Sodium 134 mEq/L (136-145); eGFR For African Americans > 60 (> 60); eGFR For Non-African Americans > 60 (> 60)
[2017-04-09 05:52] LABS: Blood Urea Nitrogen 5 mg/dL (8-26)
[2017-04-09 07:27] LABS: Immunoglobulin G Subclass 1 1110 mg/dL (240-1118)
[2017-04-09 07:28] LABS: Immunoglobulin A (CELIAC) 990 mg/dL (68-408); Immunoglobulin G Subclass 2 530 mg/dL (124-549); Immunoglobulin G Subclass 3 128 mg/dL (21-134); Immunoglobulin G Subclass 4 28 mg/dL (1-123)
[2017-04-09 07:31] LABS: ANA IgG by ELISA DETECTED (None Detected); Tissue Transglutaminase IgA 2 U/mL (0-3)
[2017-04-09] MEDS: amLODIPine 5 MG TABLET PO SCH (07:41)
[2017-04-09] MEDS: Spironolactone 25 MG TABLET PO SCH (07:41)
[2017-04-09] MEDS: Furosemide 20 MG TABLET PO SCH (07:41)
[2017-04-09] MEDS: *HR* Phytonadione 5 MG TABLET PO SCH (07:41)
[2017-04-09] MEDS: Folic Acid 1 MG TABLET PO SCH (07:42)
[2017-04-09] MEDS: Thiamine (B-1) 100 MG TABLET PO SCH (07:42)
[2017-04-09] MEDS: Nicotine 21 MG PATCH.TD24 TD SCH (07:42)
[2017-04-09] MEDS: Lisinopril 20 MG TABLET PO SCH (07:46)
[2017-04-09 08:06] LABS: Alpha 2 Globulin (PEP) 0.46 g/dL (0.48-1.05); Beta Globulin (PEP) 1.13 g/dL (0.48-1.10)
[2017-04-09] MEDS ORDERED: Magnesium Sulfate 2 GM in D5% in Water 100 ML IVPB ONE (08:09)
[2017-04-09] MEDS: 0.9 % Sodium Chloride 1,000 ML IVC SCH (10:18)
[2017-04-09 10:45] LABS: IFE Reflexed NOT DONE
--- NOTE | 2017-04-09 15:04 | Internal Med Progress Note ---
Date of Encounter: 04/09/17 Time of Encounter: 15:01 - Assessment and plan (1) Cirrhosis of liver with ascites Current Visit: Yes Status: Acute Assessment and plan: s/p paracentesis with removal of 5.5L ascites fluid GI consultation appreciated s/p EGD-reported grade II esophageal varices Started Nadolol as per GI recommendations d/c pt's home dose of Metoprolol continue lasix and spironolactone SCD for DVT ppx given thrombocytopenia Qualifiers: Hepatic cirrhosis type: alcoholic cirrhosis Qualified Code(s): K70.31 - Alcoholic cirrhosis of liver with ascites (2) Hyponatremia Current Visit: Yes Status: Acute Assessment and plan: likely secondary to excessive beer intake hyponatremia improving holding HCTZ at this time closely monitor Na levels mental status AAOx 3 (3) Thrombocytopenia Current Visit: Yes Status: Chronic Assessment and plan: secondary to liver cirrhosis will closely monitor (4) Alcohol abuse Current Visit: Yes Status: Chronic Assessment and plan: continue folate and thiamine supplementation closely monitor for alcohol withdrawal CIWA protocol ativan prn librium taper, (librium 10mg PO q8h) alcohol cessation counseling provided social work supervisor evaluation noted, patient refusing consultation at this time (5) Tobacco use Current Visit: Yes Status: Acute Assessment and plan: smoking cessation provided nicotine supplementation provided (6) Hypertension Current Visit: No Status: Chronic Assessment and plan: BP within acceptable range continue home meds Qualifiers: Hypertension type: essential hypertension Qualified Code(s): I10 - Essential (primary) hypertension (7) DVT prophylaxis Current Visit: Yes Status: Acute Assessment and plan: SCD (8) Hypomagnesemia Current Visit: Yes Status: Acute Assessment and plan: Mg supplemented continue to monitor electrolytes and replace as needed (9) Thyroid disease Current Visit: Yes Status: Acute Assessment and plan: Thyroid function tests concerning for hypothyroidism, however given the mildly elevated TSH and pt being clinically asymptomatic, will monitor off any thyroid therapy at this time. Pt to repeat thyroid profile as outpatient If pt becomes clinically symptomatic, will initiate therapy - Subjective Interval history: Patient seen and examined with family present at bedside. Pt is s/p paracentesis with removal of 5.5L ascites fluid (04/07/17). Reports of feeling significantly better since paracentesis. Reports of drinking 12pack of beer daily and is newly diagnosed with cirrhosis of the liver. He states he will consider quitting. Also reports of smoking 1ppd. was placed on librium 25mg PO q6h and responding appropriately to therapy,continue taper and change to librium 10mg PO q8h. s/p EGD which showed grade II esophageal varices Patient and family refusing bilingual social worker evaluation. State that they have all the resources that they need and patient is going to try to quit alcohol consumption after discharge. - Constitutional Vitals: Temp Pulse Resp BP Pulse Ox 98.6 F 68 17 101/68 97 04/09/17 10:37 04/09/17 10:37 04/09/17 10:37 04/09/17 10:37 04/09/17 10:37 General appearance: Present: A&O X 3, no acute distress, obese, answers questions appropriately - Head Head exam: Present: atraumatic, normocephalic - Eye Eye exam: Present: conjuntiva pink, sclera anicteric - Respiratory Respiratory exam: Absent: accessory muscle use, respiratory distress, wheezes - Cardiovascular Cardiovascular exam: Present: RRR, +S1, +S2. Absent: diastolic murmur, gallop, rubs, systolic murmur - GI/Abdominal GI/Abdominal exam: Present: distended (ascites ), normal bowel sounds, soft, no peritoneal signs. Absent: tenderness - Extremities Exam Extremities exam: Present: full ROM, warm, radial pulses palpable and symmetrical. Absent: calf tenderness - Neurological Exam Neurological exam: Present: alert, oriented X3 - Psychiatric Psychiatric exam: Present: normal affect, normal mood Internal Medicine: Result - Labs CBC & Chem 7: 04/09/17 05:25 04/09/17 05:25 Labs: Short CBC 04/09/17 Range/Units 05:25 WBC 4.0 L (4.3-11.1) K/mcL Hgb 11.6 L (12.9-16.9) g/dL Hct 32.4 L (37.5-50.1) % Plt Count 64 L (140-400) K/mcL Neutrophils # 1.9 (1.6-8.9) K/mcL BMP 04/09/17 05:25 Sodium 134 L Potassium 3.8 Chloride 105 Carbon Dioxide 24 BUN 5 L Creatinine 0.67 L Glucose 108 H Calcium 8.1 L - ABG Interpretation ABG results: PT/INR, D-dimer PT 19.3 Seconds (9.4-12.1) H 04/07/17 05:55 - Impressions Impressions Echocardiogram 04/09/17 08:08 Impressions: Normal LV systolic function, LVEF 60%. Normal left ventricular diastolic function. Normal right ventricular size and function. No significant valvular dysfunction. The aorta appears mildly dilated at the level of the aortic arch, but is not well visualized on this study. Consider dedicated imaging (such as CTA) to further evaluate if clinically indicated. Left Ventricular Wall Motion: Rest Echo Findings All wall segments showed normal motion. Findings: Study Quality * Suboptimal echo windows. ECG Findings * Normal sinus rhythm. Left Ventricle * Normal LV systolic function, LVEF 60%. * Normal LV chamber size and wall thickness. * Normal left ventricular diastolic function. Right Ventricle * Normal right ventricular size and function. Left Atrium * Normal left atrial size. Right Atrium * Normal right atrial size. Aorta * Normally sized aortic root. * The aorta appears mildly dilated at the level of the aortic arch, but is not well visualized on this study. Consider dedicated imaging to further evaluate. Pericardium * There is no pericardial effusion present. IVC * The IVC is not well evaluated. Aortic Valve * Trileaflet aortic valve. * No aortic stenosis. * No aortic regurgitation. Mitral Valve * Normal mitral valve structure. * No mitral stenosis. * No mitral regurgitation. Tricuspid Valve * Normal tricuspid valve structure. * No tricuspid stenosis. * Trace tricuspid regurgitation. * Unable to estimate RVSP due to lack of TR jet. Pulmonic Valve * Pulmonic valve not well visualized. * No pulmonic stenosis. * Trace pulmonic regurgitation. Consult Discharge Plan - Plan Referrals: Barbara Gutierrez, MOI [Primary Care Provider] - (Please call office at discharge)
[2017-04-09] MEDS ORDERED: *HR* LORazepam 2 MG/ML VIAL IVP ONE (15:35)
[2017-04-10 05:47] LABS: Immature Granulocytes % 0.2 % (0-4); Mean Platelet Volume 9.7 fL (9.4-12.4)
[2017-04-10 05:49] LABS: Basophils # 0.1 K/mcL (0.0-0.2); Basophils % 1.1 %; Eosinophils # 0.1 K/mcL (0.0-0.6); Eosinophils % 1.6 %; Hemoglobin 10.9 g/dL (12.9-16.9); Immature Platelets 3.3 % (1.1-6.1); Lymphocytes % 38.8 %; Mean Corpuscular HGB Conc 36.3 g/dL (31.6-35.5); Mean Corpuscular Hemoglobin 35.4 pg (28.0-33.3); Mean Corpuscular Volume 97.4 fL (83.0-100.0); Monocytes # 0.6 K/mcL (0.0-1.3); Nucleated Red Blood Cells 0.4 /100 WBC (0); Red Blood Count 3.08 M/mcL (4.19-5.50); Red Cell Distribution Width 17.1 % (11.5-14.5); Segmented Neutrophils % 44.3 %
[2017-04-10 05:50] LABS: Lymphocytes # 1.8 K/mcL (0.6-4.6); Platelet Count 74 K/mcL (140-400)
[2017-04-10] MEDS: Levothyroxine 25 MCG TABLET PO SCH (05:51)
[2017-04-10 06:11] LABS: BUN/Creatinine Ratio 12 (6-26); Blood Urea Nitrogen 8 mg/dL (8-26); Calcium 7.9 mg/dL (8.6-10.8); Carbon Dioxide 23 mEq/L (19-29); Chloride 108 mEq/L (98-109); Glucose 115 mg/dL (70-99); Magnesium 1.2 mg/dL (1.6-2.6); Osmolality,Calculated 281 (280-300); Phosphorous 2.9 mg/dL (2.3-4.7); Potassium 3.8 mEq/L (3.5-4.5); Sodium 136 mEq/L (136-145); eGFR For African Americans > 60 (> 60); eGFR For Non-African Americans > 60 (> 60)
[2017-04-10 07:06] LABS: ANA IgG IFA Titer <1:40 (<1:40)
[2017-04-10] MEDS: Spironolactone 25 MG TABLET PO SCH (08:41)
[2017-04-10] MEDS: Folic Acid 1 MG TABLET PO SCH (08:41)
[2017-04-10] MEDS: *HR* Phytonadione 5 MG TABLET PO SCH (08:41)
[2017-04-10] MEDS: amLODIPine 5 MG TABLET PO SCH (08:41)
[2017-04-10] MEDS: Furosemide 20 MG TABLET PO SCH (08:41)
[2017-04-10] MEDS: Nicotine 21 MG PATCH.TD24 TD SCH (08:42)
[2017-04-10] MEDS: Thiamine (B-1) 100 MG TABLET PO SCH (08:42)
[2017-04-10] MEDS: Magnesium Sulfate 2 GM in D5% in Water 100 ML IVPB SCH ×2 (08:43→09:55)
[2017-04-10] MEDS ORDERED: Lisinopril 20 MG TABLET PO SCH (09:00)
[2017-04-10 10:51] VITALS: BP 127/87
--- NOTE | 2017-04-10 13:59 | Discharge Summary ---
Date of Encounter: 04/10/17 Time of Encounter: 13:53 - Discharge Diagnosis (1) Cirrhosis of liver with ascites Priority: Primary Status: Acute Qualifiers: Hepatic cirrhosis type: alcoholic cirrhosis Qualified Code(s): K70.31 - Alcoholic cirrhosis of liver with ascites (2) Hyponatremia Priority: Primary Status: Acute (3) Thrombocytopenia Priority: Secondary Status: Chronic (4) Alcohol abuse Priority: Secondary Status: Chronic (5) Tobacco use Priority: Secondary Status: Acute (6) Hypertension Priority: Secondary Status: Chronic Qualifiers: Hypertension type: essential hypertension Qualified Code(s): I10 - Essential (primary) hypertension (7) DVT prophylaxis Priority: Secondary Status: Acute (8) Hypomagnesemia Priority: Secondary Status: Acute (9) Thyroid disease Priority: Secondary Status: Acute - Discharge Medications Prescriptions: Furosemide [Lasix] 20 mg PO DAILY #30 tablet Lisinopril [Zestril] 20 mg PO DAILY #30 tablet Nadolol [Corgard] 20 mg PO DAILY #30 tablet Spironolactone [Aldactone] 12.5 mg PO DAILY #30 tablet Home Medications: HydrOXYzine 25 mg PO HS PRN 08/04/16 [History] Levothyroxine [Synthroid] 25 mcg PO 0630 08/04/16 [History] Omeprazole 20 mg PO DAILY 08/04/16 [History] amLODIPine [Norvasc] 10 mg PO DAILY 08/04/16 [History] Ondansetron HCl [Zofran] 4 mg PO Q6HR PRN #10 tablet 04/04/17 [Rx] Furosemide [Lasix] 20 mg PO DAILY #30 tablet 04/10/17 [Rx] Lisinopril [Zestril] 20 mg PO DAILY #30 tablet 04/10/17 [Rx] Nadolol [Corgard] 20 mg PO DAILY #30 tablet 04/10/17 [Rx] Spironolactone [Aldactone] 12.5 mg PO DAILY #30 tablet 04/10/17 [Rx] Allergies/Adverse Reactions: 3 Allergy/AdvReac Type Severity Reaction Status Date / Time No Known Allergies Allergy Verified 04/06/17 12:02 Procedures/tests Complete & Pending: Procedures Performed prior 72 hours Category Date Time Status EV echocardiogram Stat Y 04/09/17 08:08 Completed Date of admission: 10/03/17 15:56 Primary care physician: Barbara Gutierrez Discharging clinician: Anaid Silva Anticipated date of discharge: 04/10/17 - Patient Status Disposition: Home, Self-Care Condition: Good Functional capacity at discharge: independent ambulation Overall status at discharge: patient is back to baseline - Discharge Instructions Follow Up With: Barbara Gutierrez, MOI [Primary Care Provider] - (Please call office at discharge) Additional Instructions: Please follow up with your primary care physician and nursing clinical director within one week after your discharge from the hospital. Your home medications have been changed and new medications have been added as follows: 1. Hydrocholorothiazide has been discontinued 2. Metoprolol has been discontinued 3. Lasix 20mg once a day has been added 4. Spironolactone 12.5mg once a day has been added 5. Nadolol 20mg once a day has been added 6. Lisinopril has been decreased to 20mg once a day Please take the medications as prescribed. Closely monitor your blood pressure at home. If your systolic blood pressure is less than 100, please hold your blood pressure medications. Please inform your primary care physician if you are having persistently low blood pressure. Please keep a daily log of your blood pressure readings and take that log with you for your follow up appointment with your primary care physician. Resume all other medications as prescribed by your primary care physician. Alcohol abstinence is highly advised. - Diet and Activity Activity: resume usual activities as tolerated Diet: low salt diet Hospital course: Mr. Majano is a 52 year old male with PMH Of alcohol abuse, cirrhosis of the liver secondary to alcohol abuse, ascites secondary to cirrhosis, hypertension, tobacco abuse, thrombocytopenia who was admitted for abdominal discomfort secondary to worsening ascites. He had a paracentesis and was followed by GI. He had an EGD which showed grade two esophageal varices. He has been started on lasix, spironolactone, and nadolol. He reports of cirrhosis being newly diagnosed and is willing to quit using alcohol. He was started on librium taper during this hospitalization. At this time he is hemodynamically stable and will be discharged to home with follow up with his PCP and GI. Pt and his (present at bedside) demonstrate understanding of his diagnosis and agree with the discharge care and plan. Both the patient and his refuse social group worker evaluation and stated that they have all the resources they need for him to quit alcohol use. - Time Spent with Patient Total time spent providing and/or coordinating discharge services: Greater than 30 minutes - Constitutional Vitals: Temp Pulse Resp BP Pulse Ox 97.8 F 81 17 127/87 95 04/10/17 10:48 04/10/17 10:48 04/10/17 10:48 04/10/17 10:48 04/10/17 10:48 General appearance: Present: A&O X 3, no acute distress, obese, answers questions appropriately - Head Head exam: Present: atraumatic, normocephalic - Eye Eye exam: Present: conjuntiva pink, sclera anicteric - Respiratory Respiratory exam: Present: CTAB. Absent: accessory muscle use, rales, rhonchi, wheezes - Cardiovascular Cardiovascular exam: Present: RRR, +S1, +S2. Absent: diastolic murmur, gallop, rubs, systolic murmur - GI/Abdominal GI/Abdominal exam: Present: distended (ascites), normal bowel sounds, soft, no peritoneal signs. Absent: tenderness - Extremities Exam Extremities exam: Present: warm, radial pulses palpable and symmetrical. Absent : calf tenderness, cyanotic - Neurological Exam Neurological exam: Present: alert, oriented X3 - Psychiatric Psychiatric exam: Present: normal affect, normal mood - VTE Documentation of Mechanical Device: Intermittent pneumatic compression device
[2017-04-10 17:46] LABS: A1A SZ Specimen WHOLE BLOOD; Alpha-1-Antitrypsin S Allele NEGATIVE; Alpha-1-Antitrypsin Z Allele NEGATIVE
[2017-04-11 13:58] LABS: Alpha-1-Antitrypsin 142 mg/dL (90-200)
== END 2017-04-10 14:54 | disposition home or self-care (01) | DRG 280 ==
LOC: EMEROO 11:30 → 2ANU 11:30 → SUATTDRO 14:17 → 2ANU 14:58
PROVIDERS: ADMIT Registered Nurse; ATTEND Internal Medicine